=== PATIENT | male | born 1985 | race Caucasian/White ===

== ENCOUNTER 2017-06-29 13:21 | Emergency (ER) | payer MEDICAID ==
[~2017-06-29] VITALS: Ht 165.1 cm; Wt 81.6 kg
[2017-06-29 19:12] VITALS: BP 130/71
== END 2017-06-29 19:12 | disposition home or self-care (01) ==
LOC: ED 13:21
DX: M79.605 Pain in left leg (principal); M54.5 Low back pain
CPT/HCPCS: J1885

== ENCOUNTER 2017-07-22 18:13 | Emergency (ER) | payer MEDICAID ==
[~2017-07-22] VITALS: Ht 167.6 cm; Wt 79.8 kg
[2017-07-22 20:20] VITALS: BP 137/85
== END 2017-07-22 20:20 | disposition home or self-care (01) ==
LOC: ED 18:13
DX: T78.1XXA Other adverse food reactions, not elsewhere classified, initial encounter (principal); R20.2 Paresthesia of skin; X58.XXXA Exposure to other specified factors, initial encounter; R09.89 Other specified symptoms and signs involving the circulatory and respiratory systems
CPT/HCPCS: J0171; J1200; J2930; J3490; J7030

== ENCOUNTER 2018-06-24 10:48 | Emergency (ER) | payer SELFPAY ==
[~2018-06-24] VITALS: Ht 165.1 cm; Wt 79.0 kg
[2018-06-24 11:29] VITALS: Ht 165.1 cm; Wt 79.0 kg
[2018-06-24 13:32] VITALS: BP 141/81
== END 2018-06-24 12:53 | disposition left against medical advice (07) ==
LOC: ED 10:48
DX: Z53.21 Procedure and treatment not carried out due to patient leaving prior to being seen by health care provider (principal)